=== PATIENT | male | born 1975 | race Caucasian/White ===

== ENCOUNTER 2021-08-24 17:35 | Emergency (ER) | payer OTHER ==
[~2021-08-24 17:35] MED LIST: EPIPEN 2-P0.3 MG/0.3 INJ; PREDNISONE20 MG PO; ZOFRAN ODT 4 MG4 MG SL
[2021-08-24] MEDS ORDERED: CLINDAMYCIN HC300 MG PO (23:59)
== END 2021-08-24 18:17 | disposition left against medical advice (07) ==
LOC: ER1 17:35
DX: L03.115 Cellulitis of right lower limb (principal); F17.200 Nicotine dependence, unspecified, uncomplicated
CPT/HCPCS: 99283

== ENCOUNTER 2021-08-24 19:12 | Emergency (ER) | payer OTHER ==
[2021-08-24 23:37] LABS: HEMOGLOBIN 15.6 gm/dl (14.0-17.5); RED BLOOD COUNT 5.24 M/UL (4.20-5.50); WHITE BLOOD COUNT 8.2 K/UL (4.5-11.0)
[2021-08-24] MEDS ORDERED: CLINDAMYCIN HC300 MG PO (23:59)
== END 2021-08-25 00:30 | disposition home or self-care (01) ==
LOC: ER1 19:12
PROVIDERS: Preventive Medicine Occupational Medicine
DX: L03.115 Cellulitis of right lower limb (principal)
CPT/HCPCS: 73590; 80053; 85025; 85652; 86140; 96365; 99283

== ENCOUNTER 2022-04-10 20:29 | Emergency (ER) | payer OTHER ==
[~2022-04-10 20:29] MED LIST changes: +CLINDAMYCIN HC300 MG PO
[2022-04-11] MEDS ORDERED: PROTONIX40 MG PO (03:18)
== END 2022-04-11 03:35 | disposition home or self-care (01) ==
LOC: ER1 20:29 → CDU 23:44 → ER1 23:44
PROVIDERS: Surgery
PROC: 0DC58ZZ Extirpation of Matter from Esophagus, Via Natural or Artificial Opening Endoscopic (ICD-10-PCS; principal; 2022-04-11 00:54)
DX: T18.128A Food in esophagus causing other injury, initial encounter (principal); X58.XXXA Exposure to other specified factors, initial encounter; I10 Essential (primary) hypertension; K21.9 Gastro-esophageal reflux disease without esophagitis; F17.210 Nicotine dependence, cigarettes, uncomplicated; Z79.899 Other long term (current) drug therapy
CPT/HCPCS: 93005; 96374; 96375; 99283; C9113; J1610; J2704